=== PATIENT | male | born 1970 | race Caucasian/White ===

== ENCOUNTER 2016-09-22 12:30 | Emergency (ER) | payer OTHER ==
[~2016-09-22] VITALS: Ht 172.7 cm; Wt 79.5 kg
[2016-09-22 12:31] VITALS: BP 155/92; PULSE 106; RESP 20; TEMP 98; O2SAT 96
[2016-09-22] MEDS ORDERED: ROBA750T PO (13:26)
[2016-09-22] MEDS ORDERED: DICL50TA PO (13:26)
--- NOTE | 2016-09-22 13:27 | PD ---
HPI Chief Complaint: Back/ Neck Pain or Injury Time Seen by Provider: 13:21 Travel History International Travel<30 days: No Contact w/Intl Traveler<30days: No Traveled to known affect area: No History of Present Illness HPI 45-year-old male presents to the emergency department for evaluation of low back pain for 1 week since he helped lift a couch downstairs. The patient states he has had similar pain in the past. He denies a traumatic injury. No fevers. No loss of bowel or bladder control. No saddle anesthesias. He denies any history of IV drug use. Patient is ambulatory. He states the pain is worse with movement. Patient states he has taken Advil, ibuprofen, naproxen [id number] without improvement. He last took Aleve last night. Patient denies having any chronic medical problems or take any prescribed medications. He states his primary care physician could not see him until the second week of September so he came to the emergency department. PFSH Past Medical History Hx Anticoagulant Therapy: No Cardiovascular Problems: No Chemotherapy: No Cerebrovascular Accident: No Diabetes: No Respiratory: No Social History Alcohol Use: Yes Tobacco Use: Yes Substance Use: No Allergies-Medications (Allergen,Severity, Reaction): Coded Allergies: No Known Allergies (Unverified , 09/22/16) Review of Systems Except as stated in HPI: all other systems reviewed are Neg Physical Exam Narrative GENERAL: Well-developed well-nourished male patient, ambulatory. Afebrile. SKIN: Warm and dry. HEAD: Normocephalic. Atraumatic. EYES: No scleral icterus. No injection or drainage. NECK: Supple, trachea midline. No JVD or lymphadenopathy. CARDIOVASCULAR: Regular rhythm without murmurs, gallops, or rubs. Bilateral radial and pedal pulses 2+. Patient is slightly tachycardic, heart rate 106, most likely due to pain. RESPIRATORY: Breath sounds equal bilaterally. No accessory muscle use. Lungs sounds are clear to auscultation. GASTROINTESTINAL: Abdomen soft, non-tender, nondistended. MUSCULOSKELETAL: No cyanosis, or edema. Bilateral upper and lower extremity strength 5/5. All extremities are neurovascularly intact. BACK: No obvious deformity. No CVA tenderness. Patient has tenderness over midline lumbar spine and bilateral lumbar paraspinal musculature. Data Data Last Documented VS Vital Signs Date Time Temp Pulse Resp B/P Pulse Ox O2 Delivery O2 Flow Rate FiO2 09/22/16 12:31 98.0 106 20 155/92 96 Room Air MDM Medical Decision Making Medical Screen Exam Complete: Yes Emergency Medical Condition: Yes Medical Record Reviewed: Yes Differential Diagnosis Muscle strain versus muscle spasm versus sciatica versus herniated disc Narrative Course 45-year-old male presents to the emergency department for evaluation of low back pain for 1 week after lifting a couch. No traumatic injury. No red flag symptoms. Physical exam is consistent with muscle strain. Patient is given Toradol 60 mg IM and Norflex 60 mg IM for pain. He'll be discharged with a prescription for diclofenac and Robaxin. He is encouraged to follow-up with his primary care physician. Patient verbalizes agreement and understanding. The patient was discharged in stable condition with instructions, including return instructions and follow up instructions. Diagnosis Primary Impression: Acute low back pain Qualified Code: M54.42 - Acute bilateral low back pain with bilateral sciatica Referrals: Primary Care Physician call for appointment Patient Instructions: Acute Low Back Pain (ED), General Instructions Departure Forms: Tests/Procedures, Work Release Enter return to work date: Sep 25, 2016 Additional Instructions: Take diclofenac as directed as needed with food for pain. Do not take with other anti-inflammatories including Advil, ibuprofen, naproxen. Take Robaxin as directed as needed for pain. Heating pad on low for 20 minutes 4-5 times daily. Follow-up with your primary care physician. Return to the emergency department for any acute worsening of symptoms. Med/Other Pt SpecificInfo: Prescription(s) given Scripts Methocarbamol (Robaxin)750 Mg Pgb149 Mg PO TID PRN (MUSCLE SPASM) #21 TAB Ref 0 Prov:Sima Calderón 09/22/16 Diclofenac Potassium 50 Mg Tab50 Mg PO TID PRN (PAIN SCALE 1 TO 10) #21 TAB Ref 0 Prov:Sima Calderón 09/22/16 Disposition: 01 DISCHARGE HOME Condition: Stable Sima Calderón Sep 22, 2016 13:27
[2016-09-22] MEDS ORDERED: ORPHENADRINE INJ 60 MG/2 ML AMP IM ONE (13:30)
[2016-09-22] MEDS ORDERED: KETOROLAC TROMETHAMINE 60 MG/2 ML (IM) VIAL IM ONE (13:30)
== END 2016-09-22 13:38 | disposition home or self-care (01) ==
LOC: NEPB 12:30
DX: M54.42 Lumbago with sciatica, left side (principal); M54.41 Lumbago with sciatica, right side; Z72.0 Tobacco use; X50.0XXA Overexertion from strenuous movement or load, initial encounter
CPT/HCPCS: 96372; 99283; J1885; J2360